=== PATIENT | female | born 1970 | race Caucasian/White ===

== ENCOUNTER 2022-11-03 14:19 | Emergency (ER) | payer BC ==
[~2022-11-03] VITALS: Ht 167.6 cm; Wt 114.0 kg
[2022-11-03] MEDS ORDERED: AMOX-277 PO (16:30)
[2022-11-03] MEDS ORDERED: PRED20TA2 PO (16:30)
[2022-11-03 16:55] VITALS: BP 132/80
== END 2022-11-03 16:59 | disposition home or self-care (01) ==
LOC: ER 14:19
DX: H66.91 Otitis media, unspecified, right ear (principal); F17.210 Nicotine dependence, cigarettes, uncomplicated; Z88.1 Allergy status to other antibiotic agents; Z90.49 Acquired absence of other specified parts of digestive tract; Z98.890 Other specified postprocedural states